=== PATIENT | female | born 1970 | race American Indian/Alaskan Native ===

== ENCOUNTER 2017-12-08 18:23 | Emergency (ER) | payer OTHER ==
[2017-12-08 18:39] VITALS: RESP 18; TEMP 98.8
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
[2017-12-08 20:01] VITALS: BP 160/100; PULSE 88
[2017-12-08 21:00] VITALS: O2SAT 100
== END 2017-12-08 20:00 | disposition home or self-care (01) ==
LOC: C.ER 18:23
DX: S39.012A Strain of muscle, fascia and tendon of lower back, initial encounter (principal); V49.10XA Passenger injured in collision with unspecified motor vehicles in nontraffic accident, initial encounter